=== PATIENT | female | born 1950 | race Two or more races ===

== ENCOUNTER 2025-02-15 18:59 | Inpatient (IN) | payer MEDICARE, MEDICAID ==
[~2025-02-15] VITALS: Ht 160 cm; Wt 63.3 kg
[2025-02-15 19:55] VITALS: PULSE 100; RESP 19; O2SAT 96
[2025-02-15] MEDS: SODIUM CHLORIDE 0.9% 1,000 ML IV ONE (20:00)
[2025-02-15] MEDS: LABETALOL HCL 20 MG/4 ML VL IV ONE ×2 (20:25→21:48)
[2025-02-15 20:32] LABS: Basophils # (auto) 0.1 10 ^3/uL (0-0.2); Basophils % (auto) 0.7 % (0.0-2.0); Eosinophils # (auto) 0.1 10 ^3/uL (0-0.8); Eosinophils % (auto) 0.5 % (0.0-7.0); Hematocrit 41.7 % (36.0-46.0); Hemoglobin 14.7 g/dL (12.2-16.2); Lymphocytes # (auto) 4.2 10 ^3/uL (0.4-5.4); Lymphocytes % (auto) 36.3 % (10.0-50.0); Mean Corpuscular Hemoglobin 27.6 pg (28.0-32.0); Mean Corpuscular Hgb Conc. 35.2 g/dL (32.0-36.0); Mean Corpuscular Volume 78.4 fL (80.0-100.0); Monocytes # (auto) 0.8 10 ^3/uL (0-1.3); Neutrophils # (auto) 6.5 10 ^3/uL (1.6-8.6); Neutrophils % (auto) 55.5 % (37.0-80.0); Nucleated Red Blood Cells % 0.3 %; Platelet Count (auto) 306 10^3/uL (140-450); Red Blood Cells 5.31 10^6/uL (4.0-5.20); White Blood Cell 11.7 10^3/uL (4.4-10.8)
[2025-02-15 20:49] LABS: Alanine Aminotransferase 13 U/L (7-40); Anion Gap 8 (5-15); BUN/Creatinine Ratio 17.7 (10.0-20.0); Bilirubin, Total 0.4 mg/dL (0.2-1.0); Blood Urea Nitrogen 11 mg/dL (9-23); Calcium 10.3 mg/dL (8.7-10.4); Carbon Dioxide 27 mmol/L (20-31); Chloride 106 mmol/L (98-107); Potassium 3.5 mmol/L (3.5-5.1); Sodium 141 mmol/L (136-145); Total Protein 7.7 g/dL (5.7-8.2)
[2025-02-15 20:54] LABS: Albumin 4.9 g/dL (3.2-4.8); Alkaline Phosphatase 125 U/L (46-116); Aspartate Aminotransferase 10 U/L (13-40); Glucose 110 mg/dL (74-106)
--- NOTE | 2025-02-15 21:33 | ED.PDOC ---
HPI Comments 74y F who presents to the ED for chief complaint of elevated blood pressure. Pt states she was at local clinic [facility] and states she went to be evaluated for high blood pressure. Pt states she doesn't have history of HT but states she monitors it at home and states it has been elevated since Jul 2024. Pt states at the clinic, the blood pressure was high with systolic value in the 170's and referred to the ED for further evaluation. Pt in the ED, has noted BP of 187/113 and after recheck it was also noted to be 188/124. Pt in the ED, otherwise denies chest pain, headache, dizziness, shortness of breath or any associated symptoms. Pt otherwise is [id number] and no noted changes in gait, vision, or speech is noted. Pt states due to insurance, she has not seen any provider in the past few years. Pt denies any other symptoms at this time. Chief Complaint: High Blood Pressure Time Seen by MD: 21:32 Reviewed Notes: Medications, Allergies Allergies: Coded Allergies: NO KNOWN ALLERGIES (Unverified , 02/15/25) Information Source: Patient Mode of Arrival: Ambulatory Brought in by: self Past Medical History PAST MEDICAL HISTORY: Denies Constitutional: denies: chills, diaphoresis, fatigue, fever, malaise, sweats, weakness, others EENTM: denies: blurred vision, double vision, ear bleeding, ear discharge, ear drainage, ear pain, ear ringing, eye pain, eye redness, hearing loss, mouth pain, mouth swelling, nasal discharge, nose bleeding, nose congestion, nose pain, photophobia, tearing, throat pain, throat swelling, voice changes, others Respiratory: denies: cough, hemoptysis, orthopnea, SOB at rest, shortness of breath, SOB with excertion, stridor, wheezing, others Cardiovascular: denies: chest pain, dizzy spells, diaphoresis, Dyspnea on exertion, edema, irregular heart beat, left arm pain, lightheadedness, palpitations, PND, syncope, others Gastrointestinal: denies: abdomen distended, abdominal pain, blood streaked bowels, constipated, diarrhea, dysphagia, difficulty swallowing, hematemesis, melena, nausea, poor appetite, poor fluid intake, rectal bleeding, rectal pain, vomiting, others Genitourinary: denies: abnormal vagina bleeding, burning, dyspareunia, dysuria, flank pain, frequency, hematuria, incontinence, pain, , vagina discharge, urgency, others Neurological: denies: dizziness, fainting, headache, left sided numbness, left sided weakness, numbness, paresthesia, pre-existing deficit, right sided numbness, right sided weakness, seizure, speech problems, tingling, tremors, weakness, others Musculoskeletal: denies: back pain, gout, joint pain, joint swelling, muscle pain, muscle stiffness, neck pain, others Integumetry: denies: bruises, change in color, change in hair/nails, dryness, laceration, lesions, lumps, rash, wounds, others Allergic/Immunocompromised: denies: Difficulty Healing, Frequent Infections, Hives, Itching, others Endocrine: denies: excessive hunger, excessive sweating, excessive thirst, excessive urination, flushing, intolerance to cold, intolerance to heat, unexplained weight gain, unexplained weight loss, others Psychiatric: denies: anxiety, bipolar disorder, depression, hopeless, panic disorder, schizophrenia, sleepless, suicidal, others All Other Systems: Reviewed and Negative Physical Exam General Appearance: No Apparent Distress, Normal HEENT: Normal ENT Inspection, Pharynx Normal, TMs Normal Neck: Full Range of Motion, Non-Tender, Normal, Normal Inspection Respiratory: Chest Non-Tender, Lungs Clear, No Accessory Muscle Use, No Respiratory Distress, Normal Breath Sounds Cardiovascular: No Edema, No JVD, No Murmur, No Gallop, Normal Peripheral Pulses, Regular Rate/Rhythm Breast Exam: Deferred Gastrointestinal: No Organomegaly, Non Tender, No Pulsatile Mass, Normal Bowel Sounds, Soft Genitalia: Deferred Pelvic: Deferred Rectal: Deferred Extremities: No calf tenderness, Normal capillary refill, Normal inspection, Normal range of motion, Non-tender, No pedal edema Musculoskeletal : Apperance: Normal Neurologic: Alert, caddie supervisor II-XII nml as Tested, No Motor Deficits, Normal Affect, Normal Mood, No Sensory Deficits Cerebellar Function: Normal Reflexes: Normal Skin: Dry, Normal Color, Warm Lymphatic: No Adenopathy Was a procedure done? Was a procedure done?: No CP Differential Dx Differential Diagnosis: Other, N/A Differential Diagnosis: HTN Essential, HTN Accelerated, HTN Encephalopathy Differential Diagnosis: Angina, Chest Wall Pain X-Ray, Labs, Meds, VS Vital Signs Date Time Temp Pulse Resp B/P (MAP) Pulse Ox O2 Delivery O2 Flow Rate FiO2 02/15/25 21:48 86 203/113 02/15/25 20:25 95 209/110 02/15/25 19:30 97.8 116 18 187/113 (137) 99 97.8 Lab Test 02/15/25 21:55 02/15/25 21:25 02/15/25 20:20 Range/Units Urine Color Colorless Yellow Urine Clarity Clear Clear Urine pH 6.0 5.0-9.0 Urine Specific [place] 1.005 1.001-1.035 Urine Protein Negative Negative Urine Ketones Negative Negative Urine Blood Trace H Negative /uL Urine Nitrite Negative Negative Urine Bilirubin Negative Negative Urine Urobilinogen Normal Negative mg/dL Urine Leukocyte Esterase 3+ Negative /uL Urine RBC 1 0 - 4 /hpf Urine Microscopic WBC 8 H 0-5 /HPF Urine Squamous Epithelial Cells Few <5 /hpf Urine Bacteria Few H None Seen /hpf Urine Mucus Few None Seen Urine Glucose Trace Normal mg/dL Troponin I High Sensitivity 6 5 </=34 ng/L White Blood Count 11.7 H 4.4-10.8 10^3/uL Red Blood Count 5.31 H 4.0-5.20 10^6/uL Hemoglobin 14.7 12.2-16.2 g/dL Hematocrit 41.7 36.0-46.0 % Mean Corpuscular Volume 78.4 L 80.0-100.0 fL Mean Corpuscular Hemoglobin 27.6 L 28.0-32.0 pg Mean Corpuscular Hemoglobin Concent 35.2 32.0-36.0 g/dL Red Cell Distribution Width 15.0 H 11.8-14.3 % Platelet Count 306 140-450 10^3/uL Mean Platelet Volume 9.0 6.9-10.8 fL Neutrophils (%) (Auto) 55.5 37.0-80.0 % Lymphocytes (%) (Auto) 36.3 10.0-50.0 % Monocytes (%) (Auto) 7.0 0.0-12.0 % Eosinophils (%) (Auto) 0.5 0.0-7.0 % Basophils (%) (Auto) 0.7 0.0-2.0 % Neutrophils # (Auto) 6.5 1.6-8.6 10 ^3/uL Lymphocytes # (Auto) 4.2 0.4-5.4 10 ^3/uL Monocytes # (Auto) 0.8 0-1.3 10 ^3/uL Eosinophils # (Auto) 0.1 0-0.8 10 ^3/uL Basophils # (Auto) 0.1 0-0.2 10 ^3/uL Nucleated Red Blood Cells 0.3 % Sodium Level 141 136-145 mmol/L Potassium Level 3.5 3.5-5.1 mmol/L Chloride Level 106 98-107 mmol/L Carbon Dioxide Level 27 20-31 mmol/L Anion Gap 8 5-15 Blood Urea Nitrogen 11 9-23 mg/dL Creatinine 0.62 0.550-1.02 mg/dL Glomerular Filtration Rate Calc 95 >90 mL/min BUN/Creatinine Ratio 17.7 10.0-20.0 Serum Glucose 110 H 74-106 mg/dL Calcium Level 10.3 8.7-10.4 mg/dL Total Bilirubin 0.4 0.2-1.0 mg/dL Aspartate Amino Transferase (AST) 10 L 13-40 U/L Alanine Aminotransferase (ALT) 13 7-40 U/L Alkaline Phosphatase 125 H 46-116 U/L B-Type Natriuretic Peptide 16.49 0-100 pg/mL Total Protein 7.7 5.7-8.2 g/dL Albumin 4.9 H 3.2-4.8 g/dL Current Medications Medications (Trade) Dose Ordered Sig/Chau Route Start Time Stop Time Status Last Admin Sodium Chloride 1,000 ml @ 1,000 mls/hr Q1H ONCE IV 02/15/25 20:00 02/15/25 20:59 DC 02/15/25 20:00 Labetalol HCl (Labetalol HCl) 10 mg ONCE ONCE IV 02/15/25 20:00 02/15/25 20:01 DC 02/15/25 20:25 Labetalol HCl (Labetalol HCl) 20 mg ONCE ONCE IV 02/15/25 21:30 02/15/25 21:31 DC 02/15/25 21:48 X-Ray, Labs, Meds, VS Comment Imaging: X-rays and CT scans were reviewed and interpreted by this provider, imaging shows no fractures and no pathological disease. Pending radiology review. Laboratory: Labs reviewed and interpreted by this provider. No significant abnormalities noted. Patient has prior medical visits reviewed. Med reconciliation performed Vital signs reviewed Patient was no initial response to labetalol 10 mg, he was given a 2nd dose of labetalol 10 mg 1 hour later which had good positive effect. Patient states she was not feeling any initial symptoms upon arrival but states she does feel �better�. Pulse down into the 70, blood pressure 155 /73 Patient will be admitted for hypertensive emergency, tachycardia, urinary tract infection, recommend cardiology consult in the morning We will monitor for any hypertensive rebound Time of 1ST Reevaluation: 22:05 Reevaluation 1ST: Unchanged Patient Education/Counseling: Diagnosis, Treatment Family Education/Counseling: No Family Present Departure 1 Departure Time of Disposition: 22:42 Impression: Primary Impression: Hypertensive urgency Additional Impressions: Tachycardia UTI (urinary tract infection) Qualified Codes: N30.01 - Acute cystitis with hematuria Disposition: ADMITTED INPATIENT Condition: Fair Discharged With: Self Critical Care Note Critical Care Time?: No Stability Stability form required: No Heart Score Heart Score: Heart Score Response (Comments) Value History Slightly Suspicious 0 EKG Normal 0 Age >65 2 Risk Factors No known risk factors 0 Troponin Normal limit 0 Total 2 I personally scribed for JENNY RICHARDS ([email or web address]) on 02/15/25 at 21:33. Electronically submitted by Seema STANTON). JENNY RICHARDS February 15, 2025 21:33
[2025-02-15 22:26] LABS: Urine Bacteria FEW /hpf (None Seen); Urine Blood TRACE /uL (Negative); Urine Clarity Clear (Clear); Urine Color Colorless (Yellow); Urine Mucus FEW (None Seen); Urine Protein, UAD Negative (Negative); Urine Specific Gravity 1.005 (1.001-1.035); Urine Squamous Epithelial Cell FEW /hpf (<5); Urine Urobilinogen Normal (Negative); Urine WBC 8 /HPF (0-5)
--- NOTE | 2025-02-15 22:27 | DVH ---
INDICATION: htn TECHNIQUE: Frontal view of the chest. COMPARISON: None FINDINGS: . The heart and mediastinal contours are grossly unremarkable. There is uncoiling and atherosclerotic change of thoracic aorta. There is no evidence of pleural disease. The lungs are clear. The bony structures of the chest are intact without fracture. IMPRESSION: 1. No evidence of acute disease.
[2025-02-15] MEDS: cefTRIAXone 1GM/50ML D5W 50 ML IV ONE (22:59)
[2025-02-15] MEDS ORDERED: LABETALOL HCL 20 MG/4 ML VL IV PRN (23:30)
[2025-02-15] MEDS: NIFEdipine ER 30 MG TAB PO SCH (23:30)
[2025-02-15] MEDS ORDERED: ACETAMINOPHEN 325 MG TAB PO PRN (23:30)
--- NOTE | 2025-02-15 23:35 | DVHHP2 ---
History of Present Illness Reason for Visit: hypertesnive urgency History of Present Illness 74-year-old female presents to the ED for evaluation of elevated blood pressure. The patient reports being seen at a local clinic in [facility]) Dr Johns due to elevated blood pressure readings, where she was advised to go to the ED for further evaluation. She denies a formal diagnosis of hypertension but states she checks her BP at home, and values have been elevated since July 2024. At the clinic, her systolic readings were in the 170s. In the ED, her BP was 187/113 and on repeat, 188/124. She denies associated symptoms such as chest pain, headache, shortness of breath, vision changes, speech difficulty, or gait changes. She attributes lack of prior evaluation to insurance issues and states she has not seen a provider in several years. No other symptoms are reported. Past Medical History: Denies any known chronic medical conditions. Medications: None reported. Review of Systems: Comprehensive 14-point review of systems was performed and negative except as noted in HPI. Review of Systems Allergies: Coded Allergies: NO KNOWN ALLERGIES (Unverified , 02/15/25) Medications Current Medications Medications Dose Ordered Sig/Chau Route Start Time Stop Time Status Last Admin Dose Admin Acetaminophen 650 mg Q6HP PRN PO 02/15/25 23:30 Enoxaparin Sodium 40 mg DAILY SC 02/16/25 10:00 Nifedipine 30 mg DAILY PO 02/15/25 23:30 UNV Labetalol HCl 10 mg Q2HPRN PRN IV 02/15/25 23:30 UNV Losartan Potassium 50 mg DAILY PO 02/16/25 10:00 UNV Exam Vital Signs Vital Signs Date Time Temp Pulse Resp B/P (MAP) Pulse Ox O2 Delivery O2 Flow Rate FiO2 02/15/25 21:48 86 203/113 02/15/25 19:30 97.8 18 99 97.8 Exam General: No acute distress. HEENT: Normal inspection of pharynx and tympanic membranes. Normal extraocular movements. Neck: Supple, no lymphadenopathy. Lungs: Clear to auscultation bilaterally, no accessory muscle use, no respiratory distress. Cardiovascular: RRR, normal S1/S2, no murmurs or gallops, peripheral pulses palpable. GI: Soft, non-tender, no organomegaly, normal bowel sounds. Musculoskeletal: Normal range of motion, non-tender, no edema. Neuro: CN II-XII intact, no focal deficits, normal motor/sensory. Skin: Normal capillary refill, intact skin. Psych: Appropriate affect, normal mood. Labs/Xrays Labs Test 02/15/25 21:55 02/15/25 21:25 02/15/25 20:20 Range/Units Urine Color Colorless Yellow Urine Clarity Clear Clear Urine pH 6.0 5.0-9.0 Urine Specific [place] 1.005 1.001-1.035 Urine Protein Negative Negative Urine Ketones Negative Negative Urine Blood Trace H Negative /uL Urine Nitrite Negative Negative Urine Bilirubin Negative Negative Urine Urobilinogen Normal Negative mg/dL Urine Leukocyte Esterase 3+ Negative /uL Urine RBC 1 0 - 4 /hpf Urine Microscopic WBC 8 H 0-5 /HPF Urine Squamous Epithelial Cells Few <5 /hpf Urine Bacteria Few H None Seen /hpf Urine Mucus Few None Seen Urine Glucose Trace Normal mg/dL Troponin I High Sensitivity 6 </=34 ng/L White Blood Count 11.7 H 4.4-10.8 10^3/uL Red Blood Count 5.31 H 4.0-5.20 10^6/uL Hemoglobin 14.7 12.2-16.2 g/dL Hematocrit 41.7 36.0-46.0 % Mean Corpuscular Volume 78.4 L 80.0-100.0 fL Mean Corpuscular Hemoglobin 27.6 L 28.0-32.0 pg Mean Corpuscular Hemoglobin Concent 35.2 32.0-36.0 g/dL Red Cell Distribution Width 15.0 H 11.8-14.3 % Platelet Count 306 140-450 10^3/uL Mean Platelet Volume 9.0 6.9-10.8 fL Neutrophils (%) (Auto) 55.5 37.0-80.0 % Lymphocytes (%) (Auto) 36.3 10.0-50.0 % Monocytes (%) (Auto) 7.0 0.0-12.0 % Eosinophils (%) (Auto) 0.5 0.0-7.0 % Basophils (%) (Auto) 0.7 0.0-2.0 % Neutrophils # (Auto) 6.5 1.6-8.6 10 ^3/uL Lymphocytes # (Auto) 4.2 0.4-5.4 10 ^3/uL Monocytes # (Auto) 0.8 0-1.3 10 ^3/uL Eosinophils # (Auto) 0.1 0-0.8 10 ^3/uL Basophils # (Auto) 0.1 0-0.2 10 ^3/uL Nucleated Red Blood Cells 0.3 % Sodium Level 141 136-145 mmol/L Potassium Level 3.5 3.5-5.1 mmol/L Chloride Level 106 98-107 mmol/L Carbon Dioxide Level 27 20-31 mmol/L Anion Gap 8 5-15 Blood Urea Nitrogen 11 9-23 mg/dL Creatinine 0.62 0.550-1.02 mg/dL Glomerular Filtration Rate Calc 95 >90 mL/min BUN/Creatinine Ratio 17.7 10.0-20.0 Serum Glucose 110 H 74-106 mg/dL Calcium Level 10.3 8.7-10.4 mg/dL Total Bilirubin 0.4 0.2-1.0 mg/dL Aspartate Amino Transferase (AST) 10 L 13-40 U/L Alanine Aminotransferase (ALT) 13 7-40 U/L Alkaline Phosphatase 125 H 46-116 U/L B-Type Natriuretic Peptide 16.49 0-100 pg/mL Total Protein 7.7 5.7-8.2 g/dL Albumin 4.9 H 3.2-4.8 g/dL Assessment/Plan Assessment/Plan #Hypertensive urgency #New onset hypertension #Complicated UTI #Non compliance Admit Medsurg Cardiac diet Nifedipine 30 mg PO Losartan 50 mg PO Labetalol PRN Ceftriaxone IV Case discussed with Dr Mejia Full code Plan discussed with: Patient, Other (rn) My Orders Orders - MAURILIO KNOWLES RESIDENT Procedure Category Date Status Time Admit ADMIT 02/15/25 Transmitted 23:24 Code Status CODE 02/15/25 Transmitted 23:24 Vital Signs NADER 02/15/25 In Process 23:24 Review Orders With NADER 02/15/25 In Process Adm. 23:24 Consistent DIET 02/16/25 Transmitted Carb(Ccho)Diabetes Breakfast Acetaminophen Tablet PHA 02/15/25 In Process (Tylenol Tablet) 23:30 Notify Of Changes NADER 02/15/25 In Process From Base 23:24 Advance Directive NADER 02/15/25 In Process 23:24 Patient Condition ORDERS 02/15/25 Transmitted 23:24 Allergies NADER 02/15/25 In Process 23:24 Enoxaparin Sodium PHA 02/16/25 In Process (Lovenox) 10:00 Nifedipine Er PHA 02/15/25 Logged (Procardia Xl 23:30 Labetalol Hcl PHA 02/15/25 Logged (Labetalol Hcl) 23:30 Losartan Tablet PHA 02/16/25 Logged (Cozaar Tablet) 10:00 Date of Service: February 15, 2025 Billing Provider: KATHY MEJIA MD Common Visit Codes: 23466-CAVUWMK INP/OBS CARE (HIGH) Secondary Visit Codes: 12745-FAUIOMNR CARE PLAN 30 MINUTES MAURILIO KNOWLES RESIDENT February 15, 2025 23:35
[2025-02-16] VITALS (12 sets, daily range): BP systolic 128–181; BP diastolic 72–95; PULSE 63–91; RESP 14–20; TEMP 97.3–98.1; O2SAT 97–99
[2025-02-16 05:14] LABS: Basophils # (auto) 0 10 ^3/uL (0-0.2); Basophils % (auto) 0.4 % (0.0-2.0); Eosinophils # (auto) 0.1 10 ^3/uL (0-0.8); Eosinophils % (auto) 0.5 % (0.0-7.0); Hematocrit 38.5 % (36.0-46.0); Hemoglobin 13.3 g/dL (12.2-16.2); Lymphocytes # (auto) 3.4 10 ^3/uL (0.4-5.4); Lymphocytes % (auto) 35.4 % (10.0-50.0); Mean Corpuscular Hemoglobin 27.1 pg (28.0-32.0); Mean Corpuscular Hgb Conc. 34.4 g/dL (32.0-36.0); Mean Corpuscular Volume 78.7 fL (80.0-100.0); Monocytes # (auto) 0.7 10 ^3/uL (0-1.3); Monocytes % (auto) 7.6 % (0.0-12.0); Neutrophils # (auto) 5.4 10 ^3/uL (1.6-8.6); Neutrophils % (auto) 56.1 % (37.0-80.0); Nucleated Red Blood Cells % 0.1 %; Platelet Count (auto) 285 10^3/uL (140-450); Red Cell Distribution Width 14.5 % (11.8-14.3); White Blood Cell 9.6 10^3/uL (4.4-10.8)
[2025-02-16 05:27] LABS: Alanine Aminotransferase 10 U/L (7-40); Alkaline Phosphatase 112 U/L (46-116); Anion Gap 6 (5-15); BUN/Creatinine Ratio 18.6 (10.0-20.0); Blood Urea Nitrogen 11 mg/dL (9-23); Calcium 10.2 mg/dL (8.7-10.4); Carbon Dioxide 27 mmol/L (20-31); Glucose 90 mg/dL (74-106); Potassium 3.7 mmol/L (3.5-5.1); Sodium 144 mmol/L (136-145); Total Protein 6.6 g/dL (5.7-8.2)
[2025-02-16 05:28] LABS: Albumin 4.2 g/dL (3.2-4.8); Bilirubin, Total 0.5 mg/dL (0.2-1.0)
[2025-02-16 05:38] LABS: Aspartate Aminotransferase 9 U/L (13-40); Chloride 111 mmol/L (98-107)
[2025-02-16] MEDS: cefTRIAXone 1GM/50ML D5W 50 ML IV SCH (09:18)
[2025-02-16] MEDS: LOSARTAN POTASSIUM 50 MG TAB PO SCH (09:20)
[2025-02-16] MEDS: ENOXAPARIN SOD 40 MG/0.4 ML SYRINGE SC SCH (09:21)
--- NOTE | 2025-02-16 10:27 | DVHPNRES ---
Progress Note Date Seen: February 16, 2025 Resident Creating Document: EDNA SERRANO RESIDENT Has the PT tested + for MRSA If YES, has PT been informed?: No Medical Necessity Reason Pt with a Central, PICC or Fol: No Medical Necessity Reason History of Present Illness 74-year-old female presents to the ED for evaluation of elevated blood pressure. The patient reports being seen at a local clinic in [facility] ([place]) Dr Johns due to elevated blood pressure readings, where she was advised to go to the ED for further evaluation. She denies a formal diagnosis of hypertension but states she checks her BP at home, and values have been elevated since July 2024. At the clinic, her systolic readings were in the 170s. In the ED, her BP was 187/113 and on repeat, 188/124. She denies associated symptoms such as chest pain, headache, shortness of breath, vision changes, speech difficulty, or gait changes. She attributes lack of prior evaluation to insurance issues and states she has not seen a provider in several years. No other symptoms are reported. Past Medical History: Denies any Past Surgical history: None Family history: Noncontributory Social history: lives with family at home PN: 02/16/2025: Patient is a 74-year-old female with no known past medical history presented to the ED after visiting a local clinic in [facility] ([place]) was notable for elevated blood pressure. Patient did not know how elevated her blood pressure was. She was told it is high therefore she needed to come to the ED. She denied any chest pain, headache, blurry vision, dizziness, palpitation nausea vomiting or any fevers. The ED initial blood pressure measured 187/113. Initial lab work revealed leukocytosis, creatinine and electrolytes are good. Chest x-ray No evidence of acute disease.Urinalysis showed evidence of a UTI. Subjective Review of Systems Constitutional: Denies fever no chills no feeling of malaise HEENT: Denies headache, ear pain, ear discharges, conjunctivitis, nasal discharge throat pain Cardiovascular: Denies chest pain, palpitation, orthopnea, PND, or pedal edema Respiratory: Denies shortness of breath, cough cough, sputum production, hemoptysis, GI: Denies abdominal pain, nausea, vomiting, diarrhea, hematemesis, hematochezia, : Denies frequency, urgency, hematuria, Endocrine: Denies unintentional weight gain or weight loss, feeling of hot flashes, Kyler: Denies easy bruising, bleeding disorders, epistaxis Musculoskeletal: Denies joint pains, muscle aches Psych: No evidence of depression, dinah, suicidal ideation Objective vital signs Vital Sign Date Time Temp Pulse Resp B/P (MAP) Pulse Ox O2 Delivery O2 Flow Rate FiO2 02/16/25 09:20 142/82 02/16/25 08:14 97.3 66 16 98 97.3 02/15/25 19:55 Room Air* 0 21 medications Current Medications Medications Dose Ordered Sig/Chau Route Start Time Stop Time Status Last Admin Dose Admin Acetaminophen 650 mg Q6HP PRN PO 02/15/25 23:30 Enoxaparin Sodium 40 mg DAILY SC 02/16/25 10:00 02/16/25 09:21 40 MG Nifedipine 30 mg DAILY PO 02/15/25 23:30 02/15/25 23:30 30 MG Labetalol HCl 10 mg Q2HPRN PRN IV 02/15/25 23:30 Losartan Potassium 50 mg DAILY PO 02/16/25 10:00 02/16/25 09:20 50 MG Ceftriaxone Sodium 50 ml @ 100 mls/hr DAILY@09 IV 02/16/25 09:00 02/16/25 09:18 100 MLS/HR Examination General Appearance: Alert, Oriented X3, Cooperative, No acute distress HEENT: Atraumatic, PERRLA, EOMI, Mucous membrane moist/pink Respiratory: Clear to auscultation, Normal air movement Cardiovascular: Regular rate, Normal S1, Normal S2, No murmurs, no chest wall tenderness Abdominal: NO distention, no tenderness, bowel sounds present, no scars noted Extremities: No clubbing, No cyanosis, No edema, Normal pulses, No tenderness/swelling Skin: No rashes, No breakdown, No significant lesion Neuro: Normal gait, Normal speech, Strength at 5/5 X4 ext, Normal tone, Sensation intact, Cranial nerves 3-12 NL, Reflexes 2+ Psych/Mental Status: Mental status NL, Mood NL laboratory and microbiology Laboratory Tests 02/16/25 04:28 Test 02/16/25 04:28 Range/Units Serum Glucose 90 74-106 mg/dL Problem List/Assessment/Plan Problem List/Assessment/Plan Assessment Acute hypertensive urgency --> continue antihypertensive medications i.e. nifedipine and losartan --> Monitor blood pressure closely UTI --> Pending Urine culture --> Ceftriaxone Spesis tue to the UTI --> tachycardia --> Leukocytosis --> Ceftriaxone Diet: regular diet DVT prophylaxis: Lovenox Goal of care discussed for more than 16 minutes: Full code Case and plan discussed with Dr. Godoy Plan discussed with: Patient My Orders My Orders Orders - EDNA SERRANO Procedure Category Date Status Time Electrocardigram EKG 02/16/25 Logged 08:09 Echo 2d Mode Cardiac US 02/16/25 Logged DOP 08:09 EDNA SERRANO February 16, 2025 10:27
[2025-02-16] MEDS: LABETALOL HCL 20 MG/4 ML VL IV PRN (17:10)
[2025-02-17 01:00] VITALS: BP 132/76; PULSE 66; RESP 18; TEMP 98.1; O2SAT 100
[2025-02-17 05:00] VITALS: BP 158/90; PULSE 55; RESP 18; TEMP 98.5; O2SAT 99
[2025-02-17 08:00] VITALS: PULSE 79; RESP 18; O2SAT 98
[2025-02-17] MEDS: LOSARTAN POTASSIUM 25 MG TAB PO SCH (08:47)
[2025-02-17 09:00] VITALS: BP 150/97; PULSE 79; RESP 16; TEMP 98.3; O2SAT 97
[2025-02-17] MEDS ORDERED: LOS25T PO (12:33)
[2025-02-17] MEDS ORDERED: NIFE1TAB31 PO (12:33)
[2025-02-17 13:00] VITALS: BP 160/93; PULSE 72; RESP 18; TEMP 98.2; O2SAT 99
[2025-02-17 13:49] VITALS: BP 150/97; PULSE 69
--- NOTE | 2025-02-17 13:58 | ECG ---
[facility] Test Date: 2025-02-16 Test Time: 08:34:37 Pat Name: MARYLIN WILCOX Department: [facility] Room: [address] [place] [address] 2 Gender: F Cathode Builder: shira : 1950 Requested By: EDNA SERRANO Order Number: [id number] Reading MD: Zachery Carlson Measurements Intervals [place] Rate: 82 P: 50 [place]: 162 QRS: -23 QRSD: 96 T: 49 QT: 402 QTc: 470 Interpretive Statements Sinus rhythm Probable left atrial enlargement RSR' in V1 or V2, probably normal variant Inferior infarct, old Electronically Signed On 02-22-2025 12:05:13 PDT by Zachery Carlson Please click the below link to view image of tracing.
--- NOTE | 2025-02-17 14:41 | DVHDSRES ---
Discharge Summary Date of Admission Resident Creating Document: EDNA SERRANO RESIDENT February 15, 2025 at 23:24 Date of Discharge: February 17, 2025 Admitting Diagnosis Elevated high blood pressure Labs/Diagnostic Data: PATIENT: MARYLIN WILCOX ACCT: [id number] UNIT: [id number] : 1950 LOC: ER ROOM / BED: / AGE / SEX: 74 / F ADM STATUS: REG ER SERVICE 52 ORDERING PHYSICIAN: JENNY RICHARDS PROCEDURE(s): CXRP - CHEST PORTABLE REASON: htn ORDER NUMBER(s): [id number], ACCESSION NUMBER(s): [id number] INDICATION: htn TECHNIQUE: Frontal view of the chest. COMPARISON: None FINDINGS: . The heart and mediastinal contours are grossly unremarkable. There is uncoiling and atherosclerotic change of thoracic aorta. There is no evidence of pleural disease. The lungs are clear. The bony structures of the chest are intact without fracture. IMPRESSION: 1. No evidence of acute disease. ATED BY: SANTIAGO MACIEL MD DICTATED DATE/TIME: 02/15/252224 Laboratory Results Test 02/16/25 04:28 02/15/25 21:55 02/15/25 21:25 02/15/25 20:20 White Blood Count 9.6 10^3/uL (4.4-10.8) Red Blood Count 4.90 10^6/uL (4.0-5.20) Hemoglobin 13.3 g/dL (12.2-16.2) Hematocrit 38.5 % (36.0-46.0) Mean Corpuscular Volume 78.7 fL (80.0-100.0) Mean Corpuscular Hemoglobin 27.1 pg (28.0-32.0) Mean Corpuscular Hemoglobin Concent 34.4 g/dL (32.0-36.0) Red Cell Distribution Width 14.5 % (11.8-14.3) Platelet Count 285 10^3/uL (140-450) Mean Platelet Volume 9.4 fL (6.9-10.8) Neutrophils (%) (Auto) 56.1 % (37.0-80.0) Lymphocytes (%) (Auto) 35.4 % (10.0-50.0) Monocytes (%) (Auto) 7.6 % (0.0-12.0) Eosinophils (%) (Auto) 0.5 % (0.0-7.0) Basophils (%) (Auto) 0.4 % (0.0-2.0) Neutrophils # (Auto) 5.4 10 ^3/uL (1.6-8.6) Lymphocytes # (Auto) 3.4 10 ^3/uL (0.4-5.4) Monocytes # (Auto) 0.7 10 ^3/uL (0-1.3) Eosinophils # (Auto) 0.1 10 ^3/uL (0-0.8) Basophils # (Auto) 0 10 ^3/uL (0-0.2) Nucleated Red Blood Cells 0.1 % Sodium Level 144 mmol/L (136-145) Potassium Level 3.7 mmol/L (3.5-5.1) Chloride Level 111 mmol/L (98-107) Carbon Dioxide Level 27 mmol/L (20-31) Anion Gap 6 (5-15) Blood Urea Nitrogen 11 mg/dL (9-23) Creatinine 0.59 mg/dL (0.550-1.02) Glomerular Filtration Rate Calc 96 mL/min (>90) BUN/Creatinine Ratio 18.6 (10.0-20.0) Serum Glucose 90 mg/dL (74-106) Hemoglobin A1c 5.6 % A1C (<5.7) Calcium Level 10.2 mg/dL (8.7-10.4) Total Bilirubin 0.5 mg/dL (0.2-1.0) Aspartate Amino Transferase (AST) 9 U/L (13-40) Alanine Aminotransferase (ALT) 10 U/L (7-40) Alkaline Phosphatase 112 U/L (46-116) Total Protein 6.6 g/dL (5.7-8.2) Albumin 4.2 g/dL (3.2-4.8) Thyroid Stimulating Hormone (TSH) 3.24 uIU/mL (0.55-4.78) Urine Color Colorless (Yellow) Urine Clarity Clear (Clear) Urine pH 6.0 (5.0-9.0) Urine Specific Higginson 1.005 (1.001-1.035) Urine Protein Negative (Negative) Urine Ketones Negative (Negative) Urine Blood Trace /uL (Negative) Urine Nitrite Negative (Negative) Urine Bilirubin Negative (Negative) Urine Urobilinogen Normal mg/dL (Negative) Urine Leukocyte Esterase 3+ /uL (Negative) Urine RBC 1 /hpf (0 - 4) Urine Microscopic WBC 8 /HPF (0-5) Urine Squamous Epithelial Cells Few /hpf (<5) Urine Bacteria Few /hpf (None Seen) Urine Mucus Few (None Seen) Urine Glucose Trace mg/dL (Normal) Troponin I High Sensitivity 6 ng/L (</=34) B-Type Natriuretic Peptide 16.49 pg/mL (0-100) Other Laboratory Tests 02/16/25 04:28 Brief Hx & Hospital Course: History of Present Illness 74-year-old female presents to the ED for evaluation of elevated blood pressure. The patient reports being seen at a local clinic in [facility]) Dr Johns due to elevated blood pressure readings, where she was advised to go to the ED for further evaluation. She denies a formal diagnosis of hypertension but states she checks her BP at home, and values have been elevated since July 2024. At the clinic, her systolic readings were in the 170s. In the ED, her BP was 187/113 and on repeat, 188/124. She denies associated symptoms such as chest pain, headache, shortness of breath, vision changes, speech difficulty, or gait changes. She attributes lack of prior evaluation to insurance issues and states she has not seen a provider in several years. No other symptoms are reported. Past Medical History: Denies any Past Surgical history: None Family history: Noncontributory Social history: lives with family at home Brief Hospital Course Patient is a 74-year-old female with no known past medical history presented to the ED after visiting a local clinic in [facility] ([place]) was notable for elevated blood pressure. She denied any chest pain, headache, blurry vision, dizziness, palpitation nausea vomiting or any fevers. The ED initial blood pressure measured 187/113. Initial lab work revealed leukocytosis, and creatinine. Chest x-ray did not show evidence of acute disease. Urinalysis showed evidence pyuria. Urine culture collected and started on antibiotics. Patient also received nifedipine and losartan for her blood pressure. Blood pressure was controlled well last night however this morning her blood pressures seem a little elevated. We will increase her losartan to 75 mg daily and maintain the nifedipine at 30mg. Urine culture did not grow any appreciable microorganism. Antibiotics discontinue. Will discharge patient home today and she will follow up at the discharge clinic in a week. Review of Systems Constitutional: Denies fever no chills no feeling of malaise HEENT: Denies headache, ear pain, ear discharges, conjunctivitis, nasal discharge throat pain Cardiovascular: Denies chest pain, palpitation, orthopnea, PND, or pedal edema Respiratory: Denies shortness of breath, cough cough, sputum production, hemoptysis, GI: Denies abdominal pain, nausea, vomiting, diarrhea, hematemesis, hematochezia, : Denies frequency, urgency, hematuria, Endocrine: Denies unintentional weight gain or weight loss, feeling of hot flashes, Kyler: Denies easy bruising, bleeding disorders, epistaxis Musculoskeletal: Denies joint pains, muscle aches Psych: No evidence of depression, dinah, suicidal ideation Examination General Appearance: Alert, Oriented X3, Cooperative, No acute distress HEENT: Atraumatic, PERRLA, EOMI, Mucous membrane moist/pink Respiratory: Clear to auscultation, Normal air movement Cardiovascular: Regular rate, Normal S1, Normal S2, No murmurs, no chest wall tenderness Abdominal: NO distention, no tenderness, bowel sounds present, no scars noted Extremities: No clubbing, No cyanosis, No edema, Normal pulses, No tenderness/swelling Skin: No rashes, No breakdown, No significant lesion Neuro: Normal gait, Normal speech, Strength at 5/5 X4 ext, Normal tone, Sensation intact, Cranial nerves 3-12 NL, Reflexes 2+ Psych/Mental Status: Mental status NL, Mood NL Diagnosis Acute hypertensive urgency Acute cystitis SIRS Asymptomatic pyuria Discharge plan Stable to go home Take the antihypertensive as instructed Follow up at the discharge Clinic in a week Follow up with the primary care doctor for worse referral to establish care with a dry wall installer. Discharge plan discussed with Dr. Godoy Condition at Discharge: Good Final Diagnosis/Problems List Acute hypertensive urgency Acute cystis Asymptomatic bacteruria SIRS with no organ demage Discharge Disposition: Home Discharge Instruct/Medications Diet: Regular Activity: No Restrictions, As Tolerated Follow Up/Referral: 7 days at the D/C clinic Medications: Losartan 75 mg daily Nifedipine 50 mg daily Discharge Statement: "Patient was advised to return to the ER or call 911 if any headaches, dizziness, shortness of breath, chest pain, abdominal pain, bleeding, fevers, or worsening of medical condition. Patient was counseled about treatment plan, medications, possible side effects, patient�verbalized understanding. All questions were answered to the best of my ability. This discharge took greater then 30 minutes in planning, reviewing documentation, counseling the patient, and discussing with other team members." ASSESSMENT ASSESSMENT Assessment Acute hypertensive urgency Acute cystis Asymptomatic bacteruria SIRS with no organ demage EDNA SERRANO RESIDENT February 17, 2025 14:41
[2025-02-17] MEDS ORDERED: LOSA-534 PO (17:34)
== END 2025-02-17 15:00 | disposition home or self-care (01) | DRG 305 ==
LOC: ER 18:59 → OVERFLOW 23:24 → EAST 02-16 15:52
PROVIDERS: ADMIT Student in an Organized Health Care Education/Training Program; ATTEND Student in an Organized Health Care Education/Training Program
DX: I16.0 Hypertensive urgency (principal); N30.00 Acute cystitis without hematuria; R65.10 Systemic inflammatory response syndrome (SIRS) of non-infectious origin without acute organ dysfunction; Z91.199 Patient's noncompliance with other medical treatment and regimen due to unspecified reason; Z79.899 Other long term (current) drug therapy; R82.71 Bacteriuria; I10 Essential (primary) hypertension
CPT/HCPCS: 36415; 71045; 80053; 81001; 83036; 83880; 84443; 84484; 85025; 87086; 93005; 96361; 96365; 96375; 96376; G0378